=== PATIENT | male | born 1995 | race American Indian/Alaskan Native ===

== ENCOUNTER 2021-05-29 17:21 | Emergency (ER) | payer SELFPAY ==
[2021-05-29 18:21] VITALS: BP 116/68
--- NOTE | 2021-05-29 18:53 | XRay Report ---
XR chest routine 2V INDICATION / CLINICAL INFORMATION: chest pain. COMPARISON: None available. FINDINGS: SUPPORT DEVICES: None. HEART /PULMONARY VASCULATURE: No significant abnormality. LUNGS / PLEURA: Very mild interstitial opacity within the lung bases. No sizable pleural effusion. No pneumothorax. ADDITIONAL FINDINGS: No significant additional findings. IMPRESSION: Mild interstitial opacities within the lung bases, may reflect atelectasis or developing atypical inf iltrate. Signer Name: Ramakrishna Mcgill MD Signed: 05/29/2021 6:48 PM Workstation Name: [id number]
[2021-05-29 20:30] LABS: Basophils # (Auto) 0.1 K/mm3 (0.0-0.1); Basophils % (Auto) 1.1 % (0.0-1.8); Eosinophils # (Auto) 0.2 K/mm3 (0.0-0.4); Eosinophils % (Auto) 3.5 % (0.0-4.3); Hematocrit 44.2 % (35.5-45.6); Hemoglobin 15.3 gm/dl (11.8-15.2); Lymphocytes # (Auto) 2.2 K/mm3 (1.2-5.4); Lymphocytes % (Auto) 44.1 % (13.4-35.0); Mean Corpuscular HGB Conc 35 % (32-34); Mean Corpuscular Volume 95 fl (84-94); Monocytes # (Auto) 0.4 K/mm3 (0.0-0.8); Monocytes % (Auto) 7.4 % (0.0-7.3); Platelet Count 196 K/mm3 (140-440); Red Blood Count 4.65 M/mm3 (3.65-5.03); Red Cell Distribution Width 13.2 % (13.2-15.2)
--- NOTE | 2021-05-29 20:48 | Emergency Department Report ---
ED Chest Pain HPI - General Chief Complaint: Chest Pain Stated Complaint: HEART ATTACK SYMPTOMS Source: patient Mode of arrival: Ambulatory Limitations: No Limitations - History of Present Illness Initial Comments: Patient is a 25-year-old -Italian male with no past medical history who presents to the ED with complaint of acute onset persistent left-sided chest wall pain for the last 2 days. Patient states that the pain has been intermittent and persistent. Patient denies shortness of breath, nausea, vomiting, traumatic injury, heavy lifting, change in vision, abdominal pain, back pain, diaphoresis or palpitations, fever, chills, cough or sore throat and neck pain. MD Complaint: chest pain (left-sided chest pain), other (left arm pain) -: Sudden, days(s) (2) Onset: awoke with symptoms Pain Location: left chest Pain Radiation: LUE Severity: moderate Severity scale (0 -10): 4 Quality: aching, sharp Consistency: intermittent Improves With: nothing Worsens With: nothing re: denies: nausea, vomting, diaphoresis, dyspnea, sense of impending doom Other Symptoms: denies: cough, fever, syncope, rash, acid taste in mouth, leg swelling, palpitations, burping, other Treatments Prior to Arrival: none - Related Data On Oral Contraceptives: No Previous Rx's Medication Instructions Recorded Last Taken Type HYDROcodone/ACETAMINOPHEN [[place] 1 each PO Q6HR PRN #20 tablet 12/27/13 Unknown Rx 5/325 Tablet] DOXYCYCLINE Hyclate [Vibramycin 100 mg PO Q12HR #20 capsule 05/29/21 Unknown Rx CAP] Ibuprofen [Motrin 600 MG tab] 600 mg PO Q8H PRN #60 tablet 05/29/21 Unknown Rx Allergies Allergy/AdvReac Type Severity Reaction Status Date / Time No Known Allergies Allergy Verified 05/29/21 18:21 Heart Score - HEART Score History: Slightly suspicious EKG: Normal Age: < 45 Risk factors: No known risk factors Troponin: < normal limit HEART Score: 0 - EKG Read Time Time EKG Completed: 16:44 EKG Read Time: 16:50 - Critical Actions Critical Actions: 0-3 pts:0.9-1.7%risk of adverse cardiac event.Candidate for discharge ED Review of Systems ROS: Stated complaint: HEART ATTACK SYMPTOMS Other details as noted in HPI Constitutional: denies: chills, fever Eyes: denies: eye pain, eye discharge, vision change ENT: denies: ear pain, throat pain Respiratory: denies: cough, shortness of breath, wheezing Cardiovascular: chest pain (left sided chest pain). denies: palpitations Endocrine: no symptoms reported Gastrointestinal: denies: abdominal pain, nausea, vomiting, diarrhea Genitourinary: denies: urgency, dysuria Musculoskeletal: denies: back pain, joint swelling, arthralgia Skin: denies: rash, lesions Neurological: denies: headache, weakness, paresthesias Psychiatric: denies: anxiety, depression Hematological/Lymphatic: denies: easy bleeding, easy bruising ED Past Medical Hx - Social History Smoking Status: Never Smoker Substance Use Type: None - Medications Home Medications: Home Medications Medication Instructions Recorded Confirmed Last Taken Type HYDROcodone/ACETAMINOPHEN [[place] 1 each PO Q6HR PRN #20 tablet 12/27/13 Unknown Rx 5/325 Tablet] DOXYCYCLINE Hyclate [Vibramycin 100 mg PO Q12HR #20 capsule 05/29/21 Unknown Rx CAP] Ibuprofen [Motrin 600 MG tab] 600 mg PO Q8H PRN #60 tablet 05/29/21 Unknown Rx ED Physical Exam - General Limitations: No Limitations General appearance: alert, in no apparent distress - Head Head exam: Present: atraumatic, normocephalic, normal inspection - Eye Eye exam: Present: normal appearance, PERRL, EOMI Pupils: Present: normal accommodation - ENT ENT exam: Present: normal exam, normal orophraynx, mucous membranes moist, TM's normal bilaterally, normal external ear exam - Neck Neck exam: Present: normal inspection, full ROM - Respiratory Respiratory exam: Present: normal lung sounds bilaterally. Absent: respiratory distress, wheezes, rales, rhonchi, stridor, chest wall tenderness, accessory muscle use, decreased breath sounds, prolonged expiratory - Cardiovascular Cardiovascular Exam: Present: regular rate, normal rhythm. Absent: systolic murmur, diastolic murmur, rubs, gallop - GI/Abdominal GI/Abdominal exam: Present: soft, normal bowel sounds. Absent: tenderness, guarding, rebound, hyperactive bowel sounds, hypoactive bowel sounds, organomegaly - Extremities Exam Extremities exam: Present: normal inspection, full ROM, normal capillary refill - Back Exam Back exam: Present: normal inspection, full ROM. Absent: tenderness, CVA tend erness (R), CVA tenderness (L), muscle spasm, paraspinal tenderness, vertebral tenderness - Neurological Exam Neurological exam: Present: alert, oriented X3, CN II-XII intact, normal gait, reflexes normal - Psychiatric Psychiatric exam: Present: normal affect, normal mood, anxious - Skin Skin exam: Present: warm, dry, intact, normal color. Absent: rash ED Course Vital Signs 05/29/21 18:20 Temperature 97.9 F Pulse Rate 60 Respiratory 14 Rate Blood Pressure 116/68 [Left] O2 Sat by Pulse 100 Oximetry MATTHEW score - Matthew Score Age > 65: (0) No Aspirin use within the Past 7 Days: (0) No 3 or more CAD Risk Factors: (0) No 2 or more Angina events in past 24 hrs: (0) No Known CAD with more than 50% Stenosis: (0) No Elevated Cardiac Markers: (0) No ST Deviation Greater than 0.5mm: (0) No MATTHEW Score: 0 ED Medical Decision Making - Lab Data Result diagrams: 05/29/21 20:17 05/29/21 20:17 - EKG Data EKG shows normal: sinus rhythm Rate: bradycardia - EKG Data Interpretation: normal EKG - Radiology Data Radiology results: report reviewed, [place] [address] XRay Report Signed Patient: YOVANA BALDERAS MR#: [id number] : 1995 Acct:[id number] Age/Sex: 25 / M ADM Date: 05/29/21 Loc: ED Attending Dr: Ordering Physician: ED MD TICO Date of Service: 05/29/21 Procedure(s): XR chest routine 2V Accession Number(s): [id number] cc: ED MD TICO Fluoro Time In Minutes: XR chest routine 2V INDICATION / CLINICAL INFORMATION: chest pain. COMPARISON: None available. FINDINGS: SUPPORT DEVICES: None. HEART /PULMONARY VASCULATURE: No significant abnormality. LUNGS / PLEURA: Very mild interstitial opacity within the lung bases. No sizable pleural effusion. No pneumothorax. ADDITIONAL FINDINGS: No significant additional findings. IMPRESSION: Mild interstitial opacities within the lung bases, may reflect atelectasis or developing atypical infiltrate. Signer Name: Ingrid Reed MD Signed: 05/29/2021 6:48 PM Workstation Name: [id number] Transcribed By: JUVENTINO Dictated By: INGRID REED MD Electronically Authenticated By: INGRID REED MD Signed Date/Time: 05/29/211847 DD/ 46 TD/TT: Print - Medical Decision Making This is a 25-year-old -Italian male with no past medical history who presents to the ED with complaint of acute onset persistent left-sided chest wall pain for the last 2 days. Patient states that the pain has been intermittent and persistent. In the ED, patient is alert and oriented x3 and is not in any distress. Patient is hemodynamically stable. Chest x-ray showed mild interstitial opacities within the lung bases, may reflect atelectasis or developing atypical. Lab test results were reviewed and are all nonactionable. Patient's heart score is 0 and patient is PERC negative per Wells criteria. Patient symptoms are likely musculoskeletal in origin or due to suspected atypical pneumonia identified on chest x-ray since the patient's heart score is 0. Patient was therefore discharged home on anti-inflammatory medications for pain and antibiotics, and was advised to follow-up with his primary care physician in 5 to 7 days for reevaluation or return to the ED immediately if sym ptoms get worse. - Differential Diagnosis ACS, Pneumonia; Costochondritis; Muscle strain; GERD; Covid-19 Critical care attestation.: If time is entered above; I have spent that time in minutes in the direct care of this critically ill patient, excluding procedure time. ED Disposition Clinical Impression: Acute nonspecific chest pain with low risk of coronary artery disease Community acquired pneumonia Qualifiers: Laterality: right Lung location: lower lobe of lung Qualified Code(s): J18.9 - Pneumonia, unspecified organism Disposition: 01 HOME / SELF CARE / HOMELESS Is pt being admited?: No Does the pt Need Aspirin: No Condition: Stable Instructions: Chest Wall Pain, [id number], Nonspecific Chest Pain, Adult, [id number], Community-Acquired Pneumonia, Adult, [id number], Chest Pain (ED), Bacterial Pneumonia (ED) Additional Instructions: All lab test results were reviewed and are all nonactionable. Chest x-ray showed mild interstitial opacities within the lung bases, may reflect atelectasis or developing atypical infiltrate. Therefore take medication with food, drink plenty of fluids and follow-up with your primary care physician in 7 to 10 days for reevaluation. Return to the ED immediately if symptoms get worse. Prescriptions: Ibuprofen [Motrin 600 MG tab] 600 mg PO Q8H PRN #60 tablet PRN Reason: Pain DOXYCYCLINE Hyclate [Vibramycin CAP] 100 mg PO Q12HR #20 capsule Referrals: [facility] [Provider Group] - 3-5 Days Time of Disposition: 20:52 Print Language: ZIMBABWEAN
[2021-05-29 21:32] LABS: Alanine Aminotransferase 21 units/L (7-56); Albumin 4.5 g/dL (3.9-5); BUN/Creatinine Ratio 10; Blood Urea Nitrogen 8 mg/dL (9-20); Hemolysis Index 12
--- NOTE | 2021-05-31 09:45 | Electrocardiograph Report ---
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
== END 2021-05-29 23:05 | disposition home or self-care (01) ==
LOC: ED 17:21
DX: J18.9 Pneumonia, unspecified organism (principal); R07.89 Other chest pain; Z79.899 Other long term (current) drug therapy
CPT/HCPCS: 36415; 71046; 80053; 84484; 85025; 93005